=== PATIENT | female | born 1980 | race Caucasian/White ===

== ENCOUNTER 2021-02-26 14:57 | Outpatient (CLI) | payer OTHER, BC, SELFPAY | END 2021-02-26 14:58 | disposition home or self-care (01) | PROVIDERS: Visit Provider Obstetrics & Gynecology | DX: N92.0 Excessive and frequent menstruation with regular cycle (principal) | CPT/HCPCS: 36415; 86850; 86900; 86901 ==

== ENCOUNTER 2021-03-03 00:04 | Day surgery (SDC) | payer OTHER, BC, SELFPAY ==
[2021-02-24 12:22] VITALS: BMI 27.1
[2021-03-03] VITALS (10 sets, daily range): BP systolic 93–138; BP diastolic 55–87; PULSE 57–75; RESP 10–20; TEMP 36.3–37.3; O2SAT 98–100
[2021-03-03] MEDS: LACTATED RINGERS 1,000 ML 30 ML IV CONT ×2 (06:43→09:25)
[2021-03-03] MEDS: ACETAMINOPHEN 500 MG TABLET 1000 MG PO (06:43)
[2021-03-03] MEDS: KETOROLAC 15 MG/ML VIAL (*BKC) IV PUSH (06:44)
--- NOTE | 2021-03-03 07:01 | WPDANESEPPF ---
Anes - Initial Pre Proc Eval Procedure: Operation Date: 03/03/21 07:30 Proposed Procedures p Total Laparoscopic Hysterectomy, Bilateral Salpingectomy - Rowan Long MD Date/Time: 03/03/21 07:01 Surgeon: Rowan Long MD Pre Op Diagnosis: menorrhaghia Patient Data Age: 40 Gender: F Height: 1.7 m Weight: 76.3 kg Allergies Allergy/AdvReac Type Severity Reaction Status Date / Time Penicillins Allergy Severe HIVES Verified 03/03/21 06:12 Home Medications Medication Instructions Recorded Confirmed Type ibuprofen 200 mg PO Q6H PRN 02/24/21 03/03/21 History loratadine [Claritin] 10 mg PO DAILY 02/24/21 03/03/21 History chlordiazepoxide-clidinium 1 cap PO BID PRN 03/03/21 03/03/21 History Patient hx anesthesia problems: post op nausea/vomiting Family hx anesthesia problems: none Results Review: All pre-operative results and documents have been reviewed as part of the pre-operative evaluation. PMFSH Past Medical History Medical History Hx of migraines Hypertension Social History Social History Smoking status: Never smoker Alcohol intake: current Drinks per week: 6 Alcohol use details: WEEKENDS ONLY Substance use: never Substance use type: does not use Living arrangements: with family Spiritual care concerns: No Anes - Eval Final PreProcedure Day of Procedure 03/03/21 07:01 Patient weight: overweight Heart: regular rate and rhythm Lungs: clear to auscultation Airway: Mallampati scale class II Neurological: alert and oriented Last oral intake: >/= 8 hours ASA classification: II Emergent: no Anesthetic plan: proceed Anesthesia type and monitoring: general ETT and standard monitoring Results Review: All pre-operative results and documents have been reviewed as part of the pre-operative evaluation. Informed Consent: The patient's anesthetic plan and its attendant risks and benefits were discussed with the patient/family/POA. Questions were solicited and answers provided to the satisfaction of the patient/family/POA.
[2021-03-03] MEDS: SCOPOLAMINE 1.5 MG PATCH TRANSDERM (07:09)
--- NOTE | 2021-03-03 07:14 | WPDHPUPDATE1 ---
History and Physical Update Update Date/Time: 03/03/21 07:14 History and Physical has been reviewed, including an updated exam of the patient. There are NO changes in the patient's condition. Risks, benefits, and alternatives have been discussed and questions answered. Patient agrees to proceed with procedure.
[2021-03-03] MEDS: ceFAZolin 2 GM/D5W 50 ML 2 GM/50 ML BAG IVPB (07:22)
[2021-03-03] MEDS: fentaNYL CITRATE INJ (*CRX) 100 MCG/2 ML VIAL 25 MCG IV PUSH ×5 (09:04→09:35)
--- NOTE | 2021-03-03 09:11 | W.PM.PROC2 ---
Procedure Note - Detailed Date of Procedure 03/03/21 Pre-op Diagnosis menorrhaghia Post-op Diagnosis same Procedure Performed Total laparoscopic hysterectomy and bilateral salpingectomy. Surgeon Rowan Long MD Anesthesia general Indications Severe menometrorrhagia, possible cervical mass Findings Moderate sized uterus, normal appearing ovaries and normal-appearing tubes. Description of Procedure This patient was taken to the operating room. She was prepped and draped in the dorsal lithotomy position after induction of general anesthesia. The uterine manipulator and Ryan cup were placed. This was done with a speculum and tenaculum. The speculum was placed. The cervix was grasped with a tenaculum. The stay sutures were placed at 3 and 9:00 a.m.. The stay sutures of 0 Vicryl were brought through the appropriately sized Ryan cup. The tip of the ANUEL manipulator was placed in the intrauterine cavity. The cup was slid into place around the cervix and into the fornices. It was locked into place. The sutures were then wrapped around the handle and tied under tension. A 5 mm skin incision was made in the left upper quadrant the abdomen. A 5 mm trocar was inserted into the intrauterine cavity under direct visualization of the scope. Pneumoperitoneum was achieved. A left lower quadrant 11 mm incision was made with scalpel. An 11 mm trocar was inserted into the anterior abdominal cavity under direct visualization the scope. A 5 mm infraumbilical incision was made with a scalpel and a 5 mm trocar was inserted the intra-abdominal cavity under direct visualization of the scope. Bilateral ureteral lysis was performed. This was done from the pelvic brim down to the uterine artery. This was done with careful dissection using sharp and blunt dissection. The fallopian tubes were removed bilaterally. The mesosalpinx around the fallopian tubes were cauterized transected with LigaSure cautery. This was done in a bilateral fashion from the ovary to the uterine cornua. The fallopian tube was transected at the uterine cornu and amputated. The tube was taken out the left lower quadrant trocar site. In a stepwise fashion along the lateral aspects of the uterus the round ligament and broad ligaments were cauterized transected down to the level of the uterine arteries. A bladder flap was created in the bladder was moved distally to the end of the cervix and over the Ryan cup. The bilateral uterine arteries were cauterized and transected. Colpotomy was then performed. In a circumferential fashion the vagina was transected using unipolar cautery. The incision was made down on the Ryan cup. The uterus and cervix were taken out through the vagina. A pneumo occluder was placed in the vagina. The vaginal cuff was closed with a 0 V lock suture in a running fashion. The pelvis was irrigated with copious amounts antibiotic irrigation. The ureters were again examined and found to be intact and flowing freely under the uterine arteries into the bladder. The bladder was intact. It was examined directly. The vagina was irrigated with Betadine solution after removal of the Pneumo occluder. The patient was taken to recovery room. She was stable condition. Sponge lap and needle counts were correct x2. Estimated Blood Loss -30.0 Drains Yes Packing No Pathology yes Complications No immediate complications Condition stable Disposition floor
--- NOTE | 2021-03-03 09:52 | SUR.PHASEI ---
[id number] sbar faxed floor notified
--- NOTE | 2021-03-03 10:05 | PC.NURSE ---
This patient, Shirley Loomis, was received from PACU on 03/03/21 at 1005. Patient oriented to unit policies and routines
[2021-03-03] MEDS: DEXTROSE 5%/0.45% SOD CHL 1,000 ML 125 ML IV CONT (10:57)
[2021-03-03] MEDS: KETOROLAC 30 MG/ML VIAL (*BKC) IV PUSH ×2 (10:58→16:19)
[2021-03-03] MEDS: HYDROcodone/acetaminophen (*CRX) 5-325 MG TABLET 1 TAB PO (16:19)
[2021-03-03] MEDS: IBUPROFEN 600 MG TABLET PO (20:38)
[2021-03-04 04:20] VITALS: BP 98/56; PULSE 60; RESP 18; TEMP 36.7; O2SAT 98
[2021-03-04] MEDS: IBUPROFEN 600 MG TABLET PO ×2 (04:20→10:19)
--- NOTE | 2021-03-04 07:28 | PM.GYNPNOP ---
GEOLOGY TECHNICIAN - A/P Postoperative Procedures: Procedures Operation Date: 03/03/21 07:30 Actual Procedure Side Surgeon p Total Laparoscopic Hysterectomy, Bilateral Salpingectomy Bilateral RMarybel Long MD Postoperative day: 1 Postoperative status: doing well Postoperative plan: see orders Time Spent With Patient Time: Total time spent is greater than 50% in coordination of care (as documented) at patient's floor/unit and/or counseling patient: Time with patient: less than 15 minutes GEOLOGY TECHNICIAN- PN:Subj Post-Op Subjective Date/time seen: 03/04/21 07:28 Subjective: patient reports feeling better, patient has no complaints and pain is well controlled Exam Const: General: healthy appearing, comfortable and no acute distress Resp: Auscultation: clear to auscultation bilaterally, no rales, no rhonchi and no wheezes Cardio: Rate: regular rate Heart sounds: no click, no murmurs and no rubs GI: Inspection: non-distended Auscultation: normal bowel sounds Extrem: General: normal to inspection, no pedal edema and no calf tenderness GEOLOGY TECHNICIAN - PN: Obj Data Vital Signs Vital Signs: Vital Signs - 24 hr 03/03/21 09:00 03/03/21 09:15 03/03/21 09:30 Temperature 97.4 F L Pulse Rate 75 57 L 63 Respiratory Rate 10 L 10 L 20 Blood Pressure 127/77 119/70 121/82 Pulse Oximetry 100 100 100 03/03/21 09:45 03/03/21 10:15 03/03/21 11:43 Temperature 97.5 F L 97.4 F L Pulse Rate 58 L 68 65 Respiratory Rate 10 L 18 16 Blood Pressure 134/83 137/87 122/73 Pulse Oximetry 100 99 03/03/21 16:00 03/03/21 19:30 03/03/21 23:45 Temperature 97.3 F L 98.2 F 97.8 F Pulse Rate 63 61 70 Respiratory Rate 18 18 18 Blood Pressure 116/67 122/67 93/55 L Pulse Oximetry 100 98 03/04/21 04:20 Temperature 98.1 F Pulse Rate 60 Respiratory Rate 18 Blood Pressure 98/56 L Pulse Oximetry 98 Intake/Output Intake/Output: Intake & Output 03/01/21 03/02/21 03/03/21 03/04/21 23:59 23:59 23:59 23:59 Intake Total 4250 500 Output Total 6712 450 Balance -2480 50 Meds/Results Medications: Active Medications Generic Name Dose Route Start Last Admin Trade Name Freq PRN Reason Stop Dose Admin Hydrocodone Bitart/Acetaminophen 1 tab 03/03/21 09:58 03/03/21 16:19 Hydrocodone/Acetaminophen (*Crx) 5-325 Mg Tablet PO 1 tab Q3H PRN Administration Pain Rated 5 or Less Hydrocodone Bitart/Acetaminophen 1 tab 03/03/21 09:58 Hydrocodone/Acetaminophen (*Crx) 10-325 Mg Tablet PO Q3H PRN Pain Rated 6 or Greater Dextrose/Sodium Chloride 1,000 mls @ 125 mls/hr 03/03/21 09:58 03/03/21 10:57 Dextrose 5% Sodium Chloride 0.45% IV CONT 125 mls/hr .Q8H YOANA Administration Ibuprofen 600 mg 03/03/21 09:58 03/04/21 04:20 Ibuprofen 600 Mg Tablet PO 600 mg Q6H PRN Administration Cramping Ketorolac Tromethamine 30 mg 03/03/21 09:58 03/03/21 16:19 Ketorolac 30 Mg/Ml Vial (*Bkc) IV PUSH 03/08/21 09:57 30 mg Q6H PRN Administration Pain Rated 4-6 Miscellaneous Information 1 each 03/03/21 00:01 Chlordiazepoxide/Clidinium Is Nonformulary. This Is A Prn Order. Hold? XX 04/02/21 00:00 CLARIFY YOANA Naloxone HCl 0.1 mg 03/03/21 09:58 Naloxone Hcl 0.4 Mg/Ml Vial IV PUSH Q2M PRN Respiratory rate less than 10 Non-Formulary Medication 1 cap 03/03/21 09:58 Chlordiazepoxide-Clidinium PO BID PRN Diarrhea Ondansetron HCl 4 mg 03/03/21 09:58 Ondansetron Inj 4 Mg/2 Ml Vial IV PUSH Q6H PRN Nausea And Vomiting
[2021-03-04 07:45] VITALS: BP 123/77; PULSE 57; RESP 16; TEMP 37.1; O2SAT 100
--- NOTE | 2021-03-04 08:55 | WPDANESPN ---
Anes - Prog Note Post-Op Date/Time: 03/04/21 08:55 Cardiovascular status: normal Respiratory status: normal Airway patency: baseline Mental status: baseline Post-Op hydration status: normal Vital Signs: Last Vital Signs Temp 98.7 F 03/04/21 07:45 Pulse 57 L 03/04/21 07:45 Resp 16 03/04/21 07:45 BP 123/77 03/04/21 07:45 Pulse Ox 100 03/04/21 07:45 Pain Score (VAS): 0 I/O: Intake & Output 03/03/21 03/04/21 03/04/21 23:59 07:59 15:59 Intake Total 3000 1200 Output Total 6550 1250 Balance -3550 -50 Post-procedural complaints: none Patient Feedback: Patient satisfied with anesthetic care.
[2021-03-04] MEDS: HYDROcodone/acetaminophen (*CRX) 5-325 MG TABLET 1 TAB PO (10:19)
--- NOTE | 2021-03-04 13:54 | PC.NURSE ---
1010 Pt has her discharge papers, has reviewed them and has no questions at this time. Discharge papers signed in understanding.
== END 2021-03-04 10:35 | disposition home or self-care (01) ==
LOC: ANHSURGERY 06:02 → ANHOB2 10:04
PROVIDERS: Visit Provider Obstetrics & Gynecology
PROC: 0UT9FZZ Resection of Uterus, Via Natural or Artificial Opening With Percutaneous Endoscopic Assistance (ICD-10-PCS; CPT 58571; principal; 2021-03-03 07:30)
DX: N92.0 Excessive and frequent menstruation with regular cycle (principal); N80.0 Endometriosis of uterus; D25.2 Subserosal leiomyoma of uterus; N94.6 Dysmenorrhea, unspecified; I10 Essential (primary) hypertension
CPT/HCPCS: 58571; 88302; 88307; 99199; A9270; J0690; J1885; J2250; J2270; J2704; J3010; J7120

== ENCOUNTER 2022-07-05 09:18 | Emergency (ER) | payer BC, SELFPAY ==
--- NOTE | ~2022-07-05 | XR_ITS ---
EXAMINATION: XR lumbar spine 2-3V DATE: 07/05/2022 10:10 INDICATION: Low back pain. Lifting injury. TECHNIQUE: 3 views of lumbar spine were obtained. COMPARISON: None. FINDINGS: There is 3 degrees dextrocurvature of lumbar spine. Vertebral body heights and intervertebr al disc heights are normal. The facet joints are unremarkable. IMPRESSION: 1. No etiology for the patient's symptoms. Reviewed, dictated and finalized at location D. ITAL PRODUCT SPECIALIST
[2022-07-05 09:24] VITALS: BP 152/97; PULSE 89; RESP 16; TEMP 36.6; O2SAT 100
--- NOTE | 2022-07-05 09:46 | ED.BACK ---
HPI - Back Pain/Injury General Chief Complaint: Back Pain/Injury Stated Complaint: lower back pain, sinus drainage Time Seen by Provider: 07/05/22 09:47 Source: patient, RN notes reviewed and old records reviewed Mode of arrival: ambulatory Limitations: no limitations History of Present Illness HPI Narrative: 42-year-old female who presents to [facility] with back back pain for the past week after lifting suitcases to the top shelf of her closet. She reports that she then lifted some tabletops for an event at her house on Tuesday which aggravated her pain. Patient reports that Motrin has been helpful till she sneezed this morning from having cold symptoms for 3 days and now pain is going into her left buttock and to her left thigh. Patient reports that she has no tingling or numbness to her lower extremities and has no difficulty passing her urine or stool or any saddle paraesthesia.Patient reports that she has had sinus drainage cough and congestion for the past 3 days with no fevers noted. MD elicited complaint: back pain Pertinent past history: other (lifting injury) Onset (ago): week(s) (1) Pain scale (0-10): 6 Treatments prior to arrival: NSAIDS Related Data Home Medications Medication Instructions Recorded Confirmed sertraline 100 mg tablet 100 mg PO DAILY 07/05/22 07/05/22 sertraline 50 mg tablet 50 mg PO DAILY 07/05/22 07/05/22 Allergies Allergy/AdvReac Type Severity Reaction Status Date / Time Penicillins Allergy Severe HIVES Verified 07/05/22 09:43 Review of Systems Review of Systems: CONSTITUTIONAL: Denies fever, chills, or sweats. CARDIOVASCULAR: Denies chest pain, palpitations, or edema. RESPIRATORY: reports cough no dyspnea, sinus congestion GASTROINTESTINAL: Denies abdominal pain, nausea, vomiting, or diarrhea. GENITOURINARY: Denies dysuria or hematuria. SKIN: Denies rash or itching. MUSCULOSKELETAL: Reports back pain left side radiating to front thigh area. No other joint pain or myalgia. NEUROLOGIC: Denies headache, numbness, or weakness. All systems reviewed & are unremarkable except as noted in HPI and below PMFSH Past Medical History Medical History (Updated 07/06/22 @ 08:05 by Maine Hernandez NP) Anxiety Hx of migraines Hypertension Seasonal allergies Tibia fracture Surgical History Surgical History (Updated 07/06/22 @ 07:55 by Maine Hernandez NP) H/O dilation and curettage History of laparoscopy endometriosis [place] teeth extracted Social History Social History Smoking status: Never smoker Alcohol intake: current Drinks per week: 6 Alcohol use details: WEEKENDS ONLY Substance use: never Substance use type: does not use Living arrangements: with family Spiritual care concerns: No Comments At time of signature, agree with nursing past medical, surgical, social and family history. There is no relevant family history pertinent to the presenting complaint Exam Narrative: GENERAL: Well-appearing, well-nourished, and in no acute distress. HEAD: Normocephalic, atraumatic. EYES: PERRLA and EOMI. NECK: Supple. No lymphadenopathy. CHEST: Clear to auscultation. No respiratory distress. dry cough noted SAO2 100% on room air HEART: Regular rate and rhythm. Distal pulses palpable and equal, cap refill <3 seconds ABDOMEN: Soft, nontender, nondistended, normal active bowel sounds, no palpable or pulsatile masses. No CVA tenderness MUSCULOSKELETAL: Normal range of motion and strength in all extremities; 5/5 strength with hip flexion and extension, dorsiflexion and extension, knee flexion and extension, plantar flexion and extension. Normal sensation in dermatomal distributions with sensitivity to light touch and pain. No midline back tenderness to palpation. No paraspinal tenderness. Transfers from lying to sitting to standing.Pain to left lower back with radiation to left thigh, no tingling or numbnes
== END 2022-07-05 10:32 | disposition home or self-care (01) ==
PROVIDERS: Emergency Provider Registered Nurse
DX: S39.012A Strain of muscle, fascia and tendon of lower back, initial encounter (principal); X50.0XXA Overexertion from strenuous movement or load, initial encounter; I10 Essential (primary) hypertension
CPT/HCPCS: 72100; 99213; G0463

== ENCOUNTER 2022-12-31 11:26 | Emergency (ER) | payer BC, SELFPAY ==
--- NOTE | 2022-12-31 11:31 | ED.URI ---
HPI - URI/Sore Throat General Chief Complaint: Upper Respiratory Infection Stated Complaint: Sore Throat;Headache Time Seen by Provider: 12/31/22 11:31 Source: patient, RN notes reviewed and old records reviewed Mode of arrival: ambulatory Limitations: no limitations History of Present Illness HPI Narrative: 42-year-old female presents to the [facility] complaints of a sore throat since this morning. Has had congestion since Tuesday. COVID at home was negative. Reports is positive for strep MD elicited complaint: sore throat Onset (ago): day(s) (6) Treatments prior to arrival: acetaminophen and other (claritin) Related Data Home Medications Medication Instructions Recorded Confirmed sertraline 100 mg tablet 100 mg PO DAILY 07/05/22 12/31/22 hydrochlorothiazide 25 mg tablet mg 12/31/22 Allergies Allergy/AdvReac Type Severity Reaction Status Date / Time Penicillins Allergy Severe HIVES Verified 07/05/22 09:43 Review of Systems Review of Systems: All systems reviewed & are unremarkable except as noted in HPI and below Constitutional: Constitutional: Reports no additional constitutional complaints Eyes: Eyes: Reports no additional eye complaints ENT: Reports as per HPI, Reports nasal congestion and Reports sore throat Cardiovascular: Cardiovascular: Reports no additional cardiovascular complaints, Denies chest pain and Denies dyspnea Respiratory: Respiratory: Reports no additional respiratory complaints, Denies chest congestion, Denies cough and Denies dyspnea Gastrointestinal: Gastrointestinal: Reports no additional gastrointestinal complaints, Denies abdominal pain, Denies nausea and Denies vomiting Musculoskeletal: Musculoskeletal: Reports no additional musculoskeletal complaints Integumentary/Breasts: Skin/Breast: Reports system reviewed and no additional complaints, except as docu Neurologic: Reports system reviewed and no additional complaints, except as documented Psychiatric: Psychiatric: Reports no additional psychiatric complaints Allergic/Immunologic: Allergic/Immunologic: Reports no additional allergic/immunologic complaints PMFSH Past Medical History Medical History (Updated 12/31/22 @ 18:35 by Lindsay Martinez APRN) Anxiety Hx of migraines Hypertension Seasonal allergies Tibia fracture Surgical History Surgical History H/O dilation and curettage History of laparoscopy endometriosis [place] teeth extracted Social History Social History Smoking status: Never smoker Alcohol intake: current Drinks per week: 6 Alcohol use details: WEEKENDS ONLY Substance use: never Substance use type: does not use Living arrangements: with family Spiritual care concerns: No Comments At the time of my signature, I reviewed and agree with the nursing past medical, surgical, social, and family history. There is no relevant family history pertinent to the patient complaint. Exam Const: General: cooperative, healthy appearing, comfortable, no acute distress, well developed, alert and well nourished Nutritional Appearance: well nourished Orientation/consciousness: patient oriented x3 Limitations: no limitations HENMT: Head: normal to inspection Ears: hearing grossly normal bilaterally, external ears normal, TM's normal bilaterally and EAC's normal Face/Nose/Sinus: Normal external nose present, Normal nares present, Normal nasal mucous membranes and turbinates present and normal facial exam Face and sinus: normal facial exam Mouth: Yes Normal oral and palatal mucosa present, Yes lip normal and Yes moist mucous membranes Throat: posterior oropharynx normal, uvula midline and postnasal drainage Eyes: General: appearance normal, both eyes and all related structures Alignment and Position: alignment normal Periorbital: periorbital findings normal Pupils: Equal, round and
[2022-12-31 11:41] VITALS: BP 152/103; PULSE 73; RESP 16; TEMP 36.6; O2SAT 100
== END 2022-12-31 11:55 | disposition home or self-care (01) ==
PROVIDERS: Emergency Provider Nurse Practitioner
DX: J06.9 Acute upper respiratory infection, unspecified (principal); I10 Essential (primary) hypertension; F41.9 Anxiety disorder, unspecified
CPT/HCPCS: 87081; 87880; 99213; G0463

== ENCOUNTER 2023-08-29 07:22 | Outpatient (CLI) | payer BC, SELFPAY ==
--- NOTE | ~2023-08-29 | MM_ITS ---
EXAMINATION: MM screening jered BI w kerrie HISTORY: Screening mammogram TECHNIQUE: Craniocaudal and mediolateral oblique 3-D tomosynthesis images were obtained and synthetic 2-D images were generated. Bilateral rotated lateral CC views. CAD analysis was submitted and interp reted. COMPARISON: No prior mammogram is available for comparison at this institution. BREAST PARENCHYMAL COMPOSITION: The breasts are heterogeneously dense, which may obscure small masses . FINDINGS: There is bilateral punctate benign microcalcifications are noted. There is no evidence of s uspicious mass, calcification, or architectural distortion to suggest malignancy in either breast. IMPRESSION: 1. No mammographic evidence of malignancy. 2. Recommend routine screening mammography in one year. BI-RADS Category 2: Benign finding(s). Reviewed, dictated and finalized at location A.
== END 2023-08-29 07:23 ==
PROVIDERS: PCP Obstetrics & Gynecology; Visit Provider Obstetrics & Gynecology
DX: Z12.31 Encounter for screening mammogram for malignant neoplasm of breast (principal)
CPT/HCPCS: 77063; 77067

== ENCOUNTER 2025-03-29 12:44 | Emergency (ER) | payer BC, SELFPAY ==
--- NOTE | 2025-03-29 12:48 | ED.UPPEXIN ---
HPI - Extremity Injury (Upper) General Chief Complaint: Extremity Injury, Lower Stated Complaint: R Knee Pain Time Seen by Provider: 03/29/25 13:05 Source: patient Mode of arrival: ambulatory Limitations: no limitations History of Present Illness HPI narrative: Juan Daniel is a 44-year-old female patient presenting to the clinic today with complaints right knee pain and swelling. She reports she fell 3 weeks ago and injured her left ankle. Also injured her right knee but was not having extreme pain at that time and was more focused on her ankle. Noticed over the last 2 days she had some knee swelling to the knee cap and today is gotten worse. Denies any pain with flexion extension of the knee. Feels as though her right leg may be more swollen than her left leg. Related Data Home Medications ?Medication ?Instructions ?Recorded ?Confirmed ?Last Taken ?Type sertraline 100 mg tablet 100 mg PO DAILY 07/05/22 12/31/22 Unknown History hydrochlorothiazide 25 mg tablet mg 12/31/22 Unknown History Allergies Allergy/AdvReac Type Severity Reaction Status Date / Time Penicillins Allergy Severe HIVES Verified 03/29/25 12:59 Review of Systems Review of Systems: Pertinent positives per HPI. Patient denies any fever, chills, rash, headache, visual changes, dizziness, cough, runny nose, sore throat, shortness of breath, chest pain, palpitations, nausea, vomiting, diarrhea, constipation, abdominal pain, or any urinary issues. [facility] Past Medical History Medical History (Updated 03/29/25 @ 13:16 by Juan Manuel Scott APRN) Anxiety Seasonal allergies Tibia fracture Hx of migraines Hypertension Surgical History Surgical History [place] teeth extracted H/O dilation and curettage History of laparoscopy endometriosis Social History Social History Smoking status: Never smoker Alcohol intake: current Drinks per week: 6 Alcohol use details: WEEKENDS ONLY Substance use: never Substance use type: does not use Living arrangements: with family Spiritual care concerns: No Comments At the time of my signature, I reviewed and agree with the nursing past medical, surgical, social, and family history. There is no relevant family history pertinent to the patient complaint. Exam Narrative: General: Well-developed, well nourished, in no apparent distress Head: Normocephalic, atraumatic. Cardio: Regular rate and rhythm, s1 and s2 normal, no murmur appreciated. Resp: Clear to auscultation bilaterally, no rhonchi, rales, wheezing or rubs. Musculoskeletal: No deformity, swelling and fluctuance to the right anterior knee joint/patella, mild erythema, no redness, non-tender to palpation, grossly normal range of motion, muscle strength strong and equal, peripheral pulse strong, no edema, no cyanosis, normal gait and station Course Course Emergency Course: Portions of this record may have been created with voice recognition software. Level of Care: Express Care Visit Vital Signs Vital signs: Vital Signs Temperature 36.5 C 03/29/25 13:00 Pulse Rate 75 03/29/25 13:00 Respiratory Rate 16 03/29/25 13:00 Blood Pressure 142/95 H 03/29/25 13:00 Pulse Oximetry 98 03/29/25 13:00 Temperature 36.5 C 03/29/25 13:00 Pulse Rate 75 03/29/25 13:00 Respiratory Rate 16 03/29/25 13:00 Blood Pressure 142/95 H 03/29/25 13:00 Pulse Oximetry 98 03/29/25 13:00 Vital signs reviewed MDM - Extremity Injury (Upper) MDM Narrative Medical decision making narrative: At the time of visit patient is resting comfortably on the exam table. Patient appears to be nontoxic. Complaints right knee pain and swelling. She reports she fell 3 weeks ago and injured her left ankle. Also injured her right knee but was not having extreme pain at that time and was more focused on her ankle. Noticed over the last 2 days she had some knee swelling to the knee cap and today is gotten worse. Denies any pain with flexion extension of the knee. Feels as though her right leg may be more swollen than her left leg. On exam patient has swelling to the right anterior knee without redness. Mildly erythemic. Range of motion of the right knee was normal. No pitting edema. Denies any calf pain, negative [place]a sign Plan: I suspect patient has a noninfected prepatellar knee bursitis. Christian wrap was applied an ice pack was given. Supportive measures were discussed with the patient and they voiced understanding discharge instructions and agrees to treatment plan. Return precautions reviewed Differential Diagnosis Differential diagnosis: Likely other (Knee bursitis, knee fusion, patella fracture) Discharge Plan Discharge Clinical Impression: Bursitis of right knee Qualifiers: Knee bursitis location: prepatellar bursitis Qualified Code(s): M70.41 - Prepatellar bursitis, right knee Patient Disposition: Home Condition: Stable Instructions: Antibiotic Form, Knee Bursitis (ED), Knee Pain (ED) Additional Instructions: Rest, ice, elevate, and wear christian wrap as directed Apply ice pack to the area 20 minutes at a time 20 minutes on/20 minutes off Tylenol/motrin for pain as discussed. Follow up with your PCP if symptoms persist more than 1 week. Follow-up with orthopedic provider-Dr. Medley-may call office on Tuesday for to schedule appointment Patient Language: Macanese Prescriptions: No Action sertraline 100 mg tablet 100 mg PO DAILY hydrochlorothiazide 25 mg tablet Follow-up/Referrals: Valerio Medley MD [Physician, Orthopedics] - 3 Days Referral Note: Right knee prepatellar bursitis Clinical Impression: Bursitis of right knee Adria Garcia, RN [Primary Care Provider, Nursing] Time of Disposition: 13:15 Quality NIHSS Nursing Documentation ED NIHSS nursing documentation: reviewed/agree
[2025-03-29 13:00] VITALS: BP 142/95; PULSE 75; RESP 16; TEMP 36.5; O2SAT 98
== END 2025-03-29 13:18 | disposition home or self-care (01) ==
PROVIDERS: Emergency Provider Nurse Practitioner Family
DX: M70.41 Prepatellar bursitis, right knee (principal); I10 Essential (primary) hypertension; F41.9 Anxiety disorder, unspecified
CPT/HCPCS: 99212; G0463